=== PATIENT | male | born 1950 | race Caucasian/White ===

== ENCOUNTER 2017-06-03 10:27 | Emergency (ER) | payer BC ==
[~2017-06-03] VITALS: Ht 188 cm; Wt 101.4 kg
[~2017-06-03 10:27] MED LIST changes: -ATOR-22 PO; -HYDR-5688 PO; -SUMA6KIT IM; -TOPI25TA99 PO; -VERA240T20 PO
[2017-06-03 10:36] VITALS: TEMP 36.5; Ht 188 cm; Wt 101.4 kg
[2017-06-03] MEDS ORDERED: VERA240T20 PO (10:44)
[2017-06-03] MEDS ORDERED: TOPI25TA99 PO (10:44)
[2017-06-03] MEDS ORDERED: ATOR-22 PO (10:44)
[2017-06-03] MEDS ORDERED: SUMA6KIT IM (10:44)
--- NOTE | 2017-06-03 11:01 | DIAGNOSTIC IMAGING REPORT ---
R ANKLE MIN 3 VIEWS ROUTINE CLINICAL HISTORY: Right ankle pain. COMPARISON: Right heel radiographs December 17, 2011. FINDINGS: There is an acute nondisplaced distal right fibular fracture which extends from the level of the tibiotalar joint 3 cm proximally. No acute distal right tibial fracture is present. There is moderate lateral ankle soft tissue swelling. No ankle mortise widening is identified. Talar dome is intact. IMPRESSION: 1. Acute nondisplaced distal right fibular fracture. 2. Moderate lateral ankle soft tissue swelling. 3. No ankle mortise widening. Electronically signed by: Clinton Muñoz M.D. 06/03/2017 11:00 AM Dictated Date/Time: 06/03/2017 10:58 AM
--- NOTE | 2017-06-03 11:02 | DIAGNOSTIC IMAGING REPORT ---
R HEEL MIN 2 VIEWS CLINICAL HISTORY: Right heel pain. COMPARISON: Right heel radiographs December 17, 2011. FINDINGS: No right calcaneal fracture is identified. An acute nondisplaced distal right fibular fracture is better depicted on the right ankle radiographs. IMPRESSION: 1. No acute right calcaneal fracture. 2. Acute nondisplaced distal right fibular fracture which is better depicted on the right ankle radiographs. Electronically signed by: Clinton Muñoz M.D. 06/03/2017 11:01 AM Dictated Date/Time: 06/03/2017 11:00 AM
--- NOTE | 2017-06-03 11:07 | EMERGENCY ROOM VISIT NOTE ---
ED Visit Note First contact with patient: 10:46 I have seen and examined this patient with Jefferson Martinez and agree with the treatment plan. Current/Historical Medications Scheduled Atorvastatin (Lipitor), 20 MG PO DAILY Levothyroxine Sodium (Levothyroxine Sodium), 150 MG PO DAILY Pantoprazole (Protonix), 40 MG PO BID Topiramate (Topamax ), 25 MG PO BID Verapamil Sust Rel (Calan Sr Ext Rel), 240 MG PO DAILY Miscellaneous Medications Sumatriptan Succinate (Imitrex Statdose), 6 MG IM Allergies Coded Allergies: No Known Allergies (Verified , UNKNOWN, 06/03/17) Vital Signs Date Time Temp Pulse Resp B/P (MAP) Pulse Ox O2 Delivery O2 Flow Rate FiO2 06/03/17 10:36 36.5 75 18 148/75 97 Room Air Departure Information Referrals Warren Marx DO (PCP) Patient Instructions My [facility]
[2017-06-03] MEDS ORDERED: HYDR-5688 PO (11:24)
[2017-06-03 11:46] VITALS: BP 141/71; PULSE 72; O2SAT 97
--- NOTE | 2017-06-03 13:40 | EMERGENCY ROOM VISIT NOTE ---
ED Visit Note First contact with patient: 10:46 CHIEF COMPLAINT: Ankle pain HISTORY OF PRESENT ILLNESS: This 66-year-old male patient presents to the emergency department after sustaining an injury to the right ankle and foot with a twisting, inversion motion that occurred last night. The patient was taking the garbage outside when he slipped at the bottom of the driveway, and suffered the injury. The patient complains of pain along the outside of the ankle. The patient is without pain of the foot. The patient rates the pain as dull and 5/10. The patient is not able to bear weight on the foot. Constant pain, worse with movement, weight bearing, and the dependent position. No knee pain, the patient is able to move their toes. No numbness or weakness of the foot, no laceration. The patient has not had a previous fracture to this ankle. The patient has taken nothing for the pain. The patient denies any other injury. REVIEW OF SYSTEMS: A 6 system review of systems was completed with positives and pertinent negatives listed in the HPI. ALLERGIES: No known allergies MEDICATIONS: See EMR PMH: See EMR SOCIAL HISTORY: Lives locally with family PHYSICAL EXAM: Vital Signs: Reviewed Nurse's notes, vital signs stable. GENERAL : White male, no acute distress, but appears in pain, well-developed, well- nourished. MENTAL STATUS: Alert, oriented to person place and time, and cooperative. MUSCULOSKELETAL: The right ankle is swollen and tender over the lateral malleolus, but the skin is intact and there is no ligamentous instability. There is no fifth metatarsal tenderness. There is no tenderness over the rest of the foot. There is no calf or tibia/fibular tenderness. There is no visual deformity. The foot and toes are warm and well-perfused. Dorsalis pedis pulse 2+. Sensation to pain and light touch is intact. Capillary refill less than 2 seconds. R ANKLE MIN 3 VIEWS ROUTINE CLINICAL HISTORY: Right ankle pain. COMPARISON: Right heel radiographs December 17, 2011. FINDINGS: There is an acute nondisplaced distal right fibular fracture which extends from the level of the tibiotalar joint 3 cm proximally. No acute distal right tibial fracture is present. There is moderate lateral ankle soft tissue swelling. No ankle mortise widening is identified. Talar dome is intact. IMPRESSION: 1. Acute nondisplaced distal right fibular fracture. 2. Moderate lateral ankle soft tissue swelling. 3. No ankle mortise widening. EMERGENCY DEPARTMENT COURSE: Physical exam and history were performed. Nursing notes and EMR were reviewed. The patient appears to have fallen last evening of injury to his right ankle. X-ray was obtained and does confirm a distal right fibular fracture. The patient is tender in this distribution, which correlates with symptoms. I discussed the case with my attending physician, Dr. Pierre, who also independently evaluated the patient. The patient was placed in an Ortho-Glass splint with neurovascular status remaining intact. He will use [id number] analgesics and prefers to follow with [facility] for further care. Evidently the patient has crutches and a walker at home that he is comfortable using. He was recommended to utilize these to prevent further falls. He was given additional discharge instructions as below. Current/Historical Medications Scheduled Atorvastatin (Lipitor), 20 MG PO DAILY Levothyroxine Sodium (Levothyroxine Sodium), 150 MG PO DAILY Pantoprazole (Protonix), 40 MG PO BID Topiramate (Topamax ), 25 MG PO BID Verapamil Sust Rel (Calan Sr Ext Rel), 240 MG PO DAILY Scheduled PRN Hydrocodone/Acetaminophen 5MG/325MG ([place] 5MG/325MG), 1-2 TABLET PO Q6 PRN for Pain Miscellaneous Medications Sumatriptan Succinate (Imitrex Statdose), 6 MG IM Allergies Coded Allergies: No Known Allergies (Verified , UNKNOWN, 06/03/17) Vital Signs Date Time Temp Pulse Resp B/P (MAP) Pulse Ox O2 Delivery O2 Flow Rate FiO2 06/03/17 11:46 72 18 141/71 97 06/03/17 10:36 36.5 75 18 148/75 97 Room Air Departure Information Impression Primary Impression: Fracture of distal end of right fibula Dispostion Home / Self-Care Condition GOOD Prescriptions Hydrocodone/Acetaminophen 5MG/325MG ([place] 5MG/325MG) Tab 1-2 TABLET PO Q6 Y for Pain, #15 TAB For Initial Treatment Prov: Jefferson Martinez PA-C 06/03/17 Referrals Warren Marx DO (PCP) Dre Cabello M.D. Forms HOME CARE DOCUMENTATION FORM, IMPORTANT VISIT INFORMATION Patient Instructions My [facility], ED Compartment Syndrome At Risk For, ED RICE Additional Instructions You were seen and evaluated today on an emergency basis only. This is not a substitute for, or an effort to provide, complete comprehensive medical care. It is not possible to recognize and treat all injuries or illnesses in a single emergency department visit. For this reason it is recommended that you followup with [facility] , Dr. Cabello's office, by telephone today to arrange a follow-up appointment in the next week. For baseline pain relief you may alternate ibuprofen and acetaminophen every 4 hours for pain control. Take 600 mg ibuprofen (Advil) and then 4 hours later take 1000 mg acetaminophen (Tylenol). Do not take more than 3000 mg acetaminophen in a single day. [place] (hydrocodone/acetaminophen) 5/325 mg every 6 hours as needed for worsening breakthrough pain. Do not drink or drive on [place]. This medication will likely make you tired. Do not take [place] and Tylenol at the same time as both contain acetaminophen. [place] may cause constipation. You may wish to take an [id number] stool softener like Colace if this occurs. Do not get your splint wet. You may use your crutches or walker from home to help with walking. Take every precaution to prevent falling. You are welcome to return to the emergency department anytime with new, worsening, or concerning symptoms.
== END 2017-06-03 11:44 | disposition home or self-care (01) ==
LOC: C.EDB 10:28 → C.EDD 11:44
DX: S82.891A Other fracture of right lower leg, initial encounter for closed fracture (principal); W01.0XXA Fall on same level from slipping, tripping and stumbling without subsequent striking against object, initial encounter; Y92.019 Unspecified place in single-family (private) house as the place of occurrence of the external cause; Z79.899 Other long term (current) drug therapy

== ENCOUNTER → 2017-06-03 | Outpatient (CLI) | payer BC ==
[~2017-06-03] MED LIST: ATOR-22 PO; B-CO1CAP3 PO; COEN75CA PO; HYDR-5688 PO; LEVO150T9 PO; OMEG10007 PO; PANT40TA PO; SUCR1TAB29 PO; SUMA100T16 PO; SUMA6KIT IM; TOPI25TA99 PO; VERA240T20 PO
--- NOTE | 2017-06-03 14:39 | DIAGNOSTIC IMAGING REPORT ---
R ANKLE 2 VIEWS HISTORY: 66 years-old Male RIGHT ANKLE PAIN acute right ankle pain with distal fibular fracture. [place] mortise view only. COMPARISON: Right ankle radiographs of same day at 10:47 AM TECHNIQUE: Single gravity mortise view of the right ankle FINDINGS: Acute fracture of the distal fibula is again seen extending to the level of the tibiotalar joint, approximately 3.0 cm proximally. There is only minimal lateral displacement of the proximal one cortex width. No widening of the distal tibiofibular syndesmosis identified. Talar dome is smooth without osteochondral defect. Moderate soft tissue swelling. IMPRESSION: 1. Acute distal fibular fracture as above with only minimal displacement. 2. Ankle mortise appears intact. 3. Moderate soft tissue swelling. The above report was generated using voice recognition software. It may contain grammatical, syntax or spelling errors. Electronically signed by: Nii Dyer M.D. 06/03/2017 2:38 PM Dictated Date/Time: 06/03/2017 2:36 PM
== END | disposition home or self-care (01) ==
LOC: C.RDSM 12:04
PROVIDERS: ATTEND Physician Assistant
DX: S82.61XA Displaced fracture of lateral malleolus of right fibula, initial encounter for closed fracture (principal); X58.XXXA Exposure to other specified factors, initial encounter

== ENCOUNTER → 2017-06-09 | Outpatient (CLI) | payer BC ==
[~2017-06-09] MED LIST changes: +ATOR-22 PO; -B-CO1CAP3 PO; -COEN75CA PO; +HYDR-5688 PO; -OMEG10007 PO; -SUCR1TAB29 PO; -SUMA100T16 PO; +SUMA6KIT IM; +TOPI25TA99 PO; +VERA240T20 PO
--- NOTE | 2017-06-09 10:29 | DIAGNOSTIC IMAGING REPORT ---
R ANKLE MIN 3 VIEWS CLINICAL HISTORY: Right ankle pain and COMPARISON: June 03, 2017 DISCUSSION: There is no change in the position of the oblique fracture of the distal fibula which demonstrates 2 mm of maximal distraction. The ankle mortise appears intact. IMPRESSION: No change in alignment of the distal fibular fracture. Electronically signed by: Jim Lira M.D. 06/09/2017 10:28 AM Dictated Date/Time: 06/09/2017 10:26 AM
== END | disposition home or self-care (01) ==
LOC: C.RDSM 10:15
PROVIDERS: ATTEND Physician Assistant
DX: S82.64XA Nondisplaced fracture of lateral malleolus of right fibula, initial encounter for closed fracture (principal); X58.XXXA Exposure to other specified factors, initial encounter

== ENCOUNTER → 2017-07-15 | Outpatient (CLI) | payer BC | END | disposition home or self-care (01) | LOC: C.RDSM 09:17 | PROVIDERS: ATTEND Physical Medicine & Rehabilitation Sports Medicine | DX: S82.64XD Nondisplaced fracture of lateral malleolus of right fibula, subsequent encounter for closed fracture with routine healing (principal); X58.XXXD Exposure to other specified factors, subsequent encounter ==

== ENCOUNTER → 2017-12-28 | Outpatient (CLI) | payer BC ==
[~2017-12-28] MED LIST changes: -HYDR-5688 PO
--- NOTE | 2017-12-28 11:44 | DIAGNOSTIC IMAGING REPORT ---
MRI OF THE LEFT SHOULDER WITHOUT CONTRAST CLINICAL HISTORY: Left shoulder pain. Strain. COMPARISON STUDY: No previous studies for comparison. TECHNIQUE: Utilizing a 1.5 Meredith magnet and dedicated coil, multiplanar, multi echo imaging of the left shoulder was performed without intravenous or intra-articular contrast. FINDINGS: Alignment of the left shoulder is anatomic. There is moderate osteoarthritis of the left acromioclavicular joint and mild osteoarthritis of the left glenohumeral joint. There is increased T2 signal within the posterior superior labrum consistent with a labral tear. The proximal long head of the biceps tendon is intact. There is no full-thickness rotator cuff tear. There is no tendon retraction or muscular atrophy of the rotator cuff musculature. There is tendinopathy with partial thickness bursal surface tears of distal supraspinatus. There is trace fluid within the subacromial/subdeltoid bursa. IMPRESSION: 1. Superior labral anterior posterior tear. 2. Tendinopathy with partial-thickness bursal surface and interstitial tears within distal supraspinatus. No full-thickness cuff tear. No tendon retraction or muscular atrophy. 3. Moderate osteoarthritis of the left acromioclavicular joint and mild osteoarthritis of the left glenohumeral joint. Electronically signed by: Clinton Muñoz M.D. 12/28/2017 11:43 AM Dictated Date/Time: 12/28/2017 11:37 AM
== END | disposition home or self-care (01) ==
LOC: C.MRI 10:12
PROVIDERS: ATTEND Family Medicine
DX: S46.012A Strain of muscle(s) and tendon(s) of the rotator cuff of left shoulder, initial encounter (principal); S43.432A Superior glenoid labrum lesion of left shoulder, initial encounter; M75.82 Other shoulder lesions, left shoulder; M19.012 Primary osteoarthritis, left shoulder; X58.XXXA Exposure to other specified factors, initial encounter

== ENCOUNTER 2024-07-24 20:30 | Inpatient (IN) ==
[2024-07-24] MEDS: NITROGLYCERIN 2% OINTMENT 30GM TUBE EXT STA (20:54)
[2024-07-24 21:08] LABS: Basophils # (auto) 0.05 K/uL (0.00-0.20); Basophils % (auto) 0.6 %; Eosinophils # (auto) 0.29 K/uL (0.00-0.50); Eosinophils % (auto) 3.5 %; Hematocrit (blood only) 40.1 % (42.0-52.0); Hemoglobin 13.2 g/dl (14.0-18.0); Immature Granulocytes # (auto) 0.02 K/uL (0.01-0.20); Immature Granulocytes % (auto) 0.2 %; Lymphocytes # (auto) 1.25 K/uL (1.20-3.40); Lymphocytes % (auto) 15.2 %; Mean Corpuscular Hemoglobin 31.4 pg (25.0-34.0); Mean Corpuscular Hgb Conc 32.9 g/dL (32.0-36.0); Mean Corpuscular Volume 95.5 fL (80.0-100.0); Mean Platelet Volume 9.8 fL (9.4-12.4); Monocytes # (auto) 0.64 K/uL (0.11-0.59); Monocytes % (auto) 7.8 %; Neutrophils % (auto) 72.7 %; Platelet Count 185 K/uL (130-400); RDW Coefficient of Variation 13.2 % (11.5-14.5); RDW Standard Deviation 45.9 fL (36.4-46.3); White Blood Count 8.25 K/ul (4.8-10.8)
--- NOTE | 2024-07-24 21:14 | Emergency Department Note ---
Impression & Plan Left-sided chest pain, Arm pain, left ED Provider Note NAME: DINORA NASCIMENTO Jr AGE: 73 SEX: Male INFORMANT: Patient ED PROVIDER(S): Marcos Welsh MD CHIEF COMPLAINT: Chest pain PLAN: Disposition: Admitted Outpatient prescription management: none Referral: None MEDICAL DECISION MAKING: Patient presented with chest pain that was relieved by nitroglycerin. Currently he is doing well with minimal discomfort. First ECG did not reveal any ST elevation. Nitropaste was applied. Patient did receive aspirin prehospital. Patient was reassessed and noted some increased discomfort after the Nitropaste but it was only a 2 out of 10. Patient was given a sublingual nitroglycerin. A second ECG was performed and did not reveal any significant change from the first. No ST elevation or ST depression. Patient was monitored. He did have improvement of his symptoms and pain resolved. 30 ECG performed and again revealed no significant change from the first 2 ECGs. Patient had an elevated cardiac troponin. Remainder of labs were unremarkable. Repeat cardiac troponin was performed. Consultation was made with Dr. Arana of the [facility] service. Patient was evaluated in the ER for further management. She will manage the patient's medications and further treatment at this point. Care/management discussed with: barber or beauty shop manager Level of care consideration(s): After review of the information above and other included data, I feel the patient requires escalation of care to admission Triage Nursing notes: reviewed and agree them. Vital Signs: reviewed and remarkable for no significant abnormalities Additional History obtained from: none Chronic Medical/Social Conditions affecting care: High blood pressure Prior/ Outside/ External records reviewed: none Differential Diagnosis: Cardiac ischemia, aortic dissection, pulmonary embolism, pneumothorax, pneumonia, pericarditis, myocarditis, esophageal rupture, GERD, cholecystitis, pancreatitis, musculoskeletal, as well as other pathologies. Diagnostics, independently interpreted by me: ECG: Twelve-lead ECG reveals sinus rhythm with sinus arrhythmia at 81 bpm. Poor R wave progression. No ST elevation. Cardiac Monitoring: Cardiac monitoring ordered by me: The patient was placed on continuous cardiac monitoring and observed. It revealed a normal sinus rhythm at 78 beats per minute without ectopy or evidence of dysrhythmia. Medical decision rules: Patient is moderate risk by HEART SCORE. Imaging studies: Chest x-ray. Findings: A chest x-ray was performed and revealed no pneumothorax, effusion, infiltrate, pulmonary edema, free air under the diaphragm, or wide mediastinum. Impression: No acute disease. HPI: 73 year old Male arrives for evaluation of left-sided chest pain. This started today and is and has been intermittent. Patient notes it has been in the left-sided chest. It did radiate to the left arm and down towards the left hand. Patient notes this is nonexertional. Symptoms escalated this evening and the patient contacted EMS. He was given nitro and aspirin and brought to the emergency department for further management. He did note that the nitro significantly improved his pain. He notes almost complete resolution of any discomfort at this point in time.. The patient also notes the following associated symptoms, none. Current pain is rated as less than 1/10. Patient notes that he was having some epigastric/substernal chest discomfort about 3 years ago and did have a workup performed at that time. He was told he had increased acid. This episode with the left-sided pain into the left arm is different. Pt denies LOC, headache, fevers, chills, diaphoresis, visual changes, neck pain, breathing difficulties, nausea, vomiting, abdominal pain, back pain, melena, hematochezia, urinary symptoms, numbness, weakness, lymphadenopathy, rash, or other complaints.. PAST MEDICAL HISTORY: See Below, GERD PAST SURGICAL HISTORY: See Below, SOCIAL HISTORY: See Below, non-smoker HOME MEDICATIONS: See Below ALLERGIES: See Below VITALS: See Below PHYSICAL EXAMINATION: GENERAL: Awake, alert, well-appearing, in no distress HENT: Normocephalic, atraumatic. Oropharynx unremarkable. EYES: Normal conjunctiva. Sclera non-icteric. NECK: Inspection normal. Non-tender. Supple. No nuchal rigidity. FROM. No masses. RESPIRATORY: Clear to auscultation. No wheezes. No rales. Normal respiratory effort. CARDIAC: Normal rate. Normal rhythm. No murmurs. No rubs. Extremities warm and well perfused. Pulses equal. No JVD. GI: Soft, non-distended. No tenderness to palpation. No rebound or guarding. No masses. RECTAL: Deferred. MUSCULOSKELETAL: Atraumatic. Chest examination reveals no tenderness. The back is symmetrical on inspection without obvious abnormality. There is no CVA tenderness to palpation. No joint edema. LOWER EXTREMITIES: Calves are equal size bilaterally and non-tender. No edema. No discoloration. NEURO: Normal sensorium. No sensory or motor deficits noted. SKIN: No rash or jaundice noted. PROCEDURES: none CRITICAL CARE: none OBSERVATION NOTE: none Past Med/Surg History Problem List (Updated 07/24/24 @ 21:14 by Marcos Welsh MD) Arm pain, left (Acute) Left-sided chest pain (Acute) Colon cancer screening Aortic root dilatation Right ventricular dilation Adhesive capsulitis of right shoulder Adhesive capsulitis of left shoulder Encounter for pre-operative examination Chest pain Abnormal EKG Migraine (Chronic) sporatic occurrances Medical History Aortic root dilatation monitored yearly; f/u dr. weiss, [facility] cardio Polyneuropathy Migraine sporatic occurrances GERD (gastroesophageal reflux disease) Hypothyroidism Hyperlipidemia Sleep apnea uses cpap Surgical History History of surgery Manipulation under anesthesia of the left shoulder History of colonoscopy History of repair of ACL right knee Hx of cervical spine surgery limited ROM side to side History of arthroscopy x1,left shoulder x1 right shoulder Family History Other No family history of adverse response to anesthesia Social History Smoking Status: Never smoker Second Hand Exposure: Yes (hx growing up); Do You Dip or Chew Tobacco: No; Hx Alcohol Use: Yes Alcohol type: hard liquor Hx Substance Use: No Preferred Language: Armenian Communication Ability: Effective Territory Business Manager Required: No Beliefs That Will Affect Care: None Current Living Situation: Spouse Feels Safe at Home: Yes Assistive Devices: Glasses and Hearing Aid - Bilateral Allergies Allergies Allergy/AdvReac Type Severity Reaction Status Date / Time doxycycline AdvReac Severe Gastrointestinal Verified 07/24/24 23:49 Upset Home Meds Home Medications Medication Instructions Recorded Confirmed atorvastatin 20 mg tablet 20 mg PO QAM 05/18/18 07/24/24 pantoprazole 40 mg tablet,delayed 40 mg PO BID 05/18/18 07/24/24 release levothyroxine 150 mcg tablet 150 mcg PO Q2D 09/12/20 07/24/24 levothyroxine 175 mcg tablet 175 mcg PO Q2D 09/12/20 07/24/24 docusate sodium 100 mg capsule 100 mg PO HS 10/08/23 07/24/24 (Stool Softener) Previous Rx's Medication Instructions Recorded verapamil 240 mg tablet,extended 240 mg PO QPM 30 days #30 tabs 10/05/23 release sumatriptan succinate 6 mg/0.5 mL 6 mg (0.5 mL) subcut UD PRN 12/11/23 subcutaneous pen injector migraines #1 mL topiramate 100 mg tablet 100 mg PO .COMPLEX #90 tabs 03/14/24 Results & Data (ED) Vital Signs Vital Signs - 24 hr 07/24/24 20:35 07/24/24 20:36 07/24/24 20:44 Temperature 36.8 C Temperature Source Oral Pulse Rate 77 78 Pulse Rate [Apical] Respiratory Rate 18 Respiratory Effort / Characteristics Non-Labored Spontaneous Respiratory Depth Normal Respiratory Pattern Regular Blood Pressure 139/85 Blood Pressure [Right Arm] Blood Pressure Mean 103 Blood Pressure Mean [Right Arm] Blood Pressure Position Semi-fowlers Blood Pressure Position [Right Arm] Pulse Oximetry 96 Oxygen Delivery Method Room Air Room Air Sepsis Recent Fever Within 48 Hours No Sepsis New/Unexplained Change in Mental Status No Sepsis Action Taken by Nursing No Action Required 07/24/24 21:51 07/24/24 23:00 07/25/24 00:00 Temperature Temperature Source Pulse Rate Pulse Rate [Apical] 69 53 L Respiratory Rate 18 18 Respiratory Effort / Characteristics Respiratory Depth Respiratory Pattern Blood Pressure Blood Pressure [Right Arm] 140/100 125/91 105/70 Blood Pressure Mean Blood Pressure Mean [Right Arm] 113 102 81 Blood Pressure Position Blood Pressure Position [Right Arm] Semi-fowlers Semi-fowlers Pulse Oximetry 93 95 Oxygen Delivery Method Room Air Sepsis Recent Fever Within 48 Hours Sepsis New/Unexplained Change in Mental Status Sepsis Action Taken by Nursing Laboratory Data 07/24/24 20:40 07/24/24 20:40 Lab Results 07/24/24 07/24/24 Range/Units 20:40 22:15 WBC 8.25 (4.8-10.8) K/ul RBC 4.20 L (4.70-6.10) M/uL Hgb 13.2 L (14.0-18.0) g/dl Hct 40.1 L (42.0-52.0) % MCV 95.5 (80.0-100.0) fL MCH 31.4 (25.0-34.0) pg MCHC 32.9 (32.0-36.0) g/dL RDW Std Deviation 45.9 (36.4-46.3) fL RDW Coeff of Kaye 13.2 (11.5-14.5) % Plt Count 185 (130-400) K/uL MPV 9.8 (9.4-12.4) fL Immature Gran % (Auto) 0.2 % Neut % (Auto) 72.7 % Lymph % (Auto) 15.2 % [place] % (Auto) 7.8 % Eos % (Auto) 3.5 % Baso % (Auto) 0.6 % Neut # (Auto) 6.00 (1.40-6.50) K/uL Lymph # (Auto) 1.25 (1.20-3.40) K/uL [place] # (Auto) 0.64 H (0.11-0.59) K/uL Eos # (Auto) 0.29 (0.00-0.50) K/uL Baso # (Auto) 0.05 (0.00-0.20) K/uL Immature Gran # (Auto) 0.02 (0.01-0.20) K/uL Sodium 140 (136-145) mmol/L Potassium 3.7 (3.5-5.1) mmol/L Chloride 110 H (98-107) mmol/L Carbon Dioxide 25 (21-32) mmol/L Anion Gap 5 (3-11) BUN 20 (6-23) mg/dl Creatinine 1.39 (0.6-1.4) mg/dl Est Cr Clr Drug Dosing 59.8 ml/min eGFR 53.53 BUN/Creatinine Ratio 14.4 (10-20) Glucose 135 H (70-99(Fasting)) mg/dl Calcium 9.3 (8.6-10.3) mg/dl Total Bilirubin 0.3 (0.2-1.0) mg/dl AST 20 (13-39) U/L ALT 31 (7-52) U/L Alkaline Phosphatase 62 (34-104) U/L Troponin I High Sens 65.9 H* 134.7 H* D (0-20) pg/ml Total Protein 6.4 (6.0-8.3) gm/dl Albumin 4.1 (3.4-5.0) gm/dl Globulin 2.3 L (2.5-4.0) gm/dl Albumin/Globulin Ratio 1.8 (0.9-2) Lipase 24 (11-82) U/L Administered Medications Nitroglycerin (Nitroglycerin Sl 0.4 Mg/Tab Tab) 0.4 mg SL Q5M PRN PRN Reason: Chest Pain Stop: 08/23/24 21:42 Last Admin: 07/24/24 21:51 Dose: 0.4 mg Documented By: LIA Discontinued Medications Nitroglycerin (Nitroglycerin 2% Ointment 30gm Tube) 0.5 inch EXT NOW STA Stop: 07/24/24 20:46 Last Admin: 07/24/24 20:54 Dose: 0.5 inch Documented By: LIA Discharge Plan Visit Data Chief Complaint: Cardiac Assessment Stated Complaint: CHEST PAIN, INTO LEFT ARM ED Provider: Marcos Welsh Discharge Problem: Left-sided chest pain, Arm pain, left Patient Disposition: Admitted As Inpatient Discharge Instructions Interventions: ED Discharge Assessment Last Done: 07/25/24 00:05 Forms Stand Alone Forms: [employer] Prescriptions Prescriptions: No Action verapamil 240 mg tablet extended release 240 mg PO QPM 30 Days Qty: 30 11RF topiramate 100 mg tablet 100 mg PO .COMPLEX Qty: 90 5RF Rx Instructions: 100 mg orally IN THE AM AND 200MG IN THE PM; sumatriptan succinate 6 mg/0.5 mL pen injector 6 mg subcut UD PRN (Reason: migraines) Qty: 1 11RF Rx Instructions: 6 mg subcutaneously DIRECTED PRN. atorvastatin 20 mg Tablet 20 mg PO QAM pantoprazole 40 mg Tablet,Delayed Release (Dr/Ec) 40 mg PO BID levothyroxine 175 mcg Tablet 175 mcg PO Q2D levothyroxine 150 mcg Tablet 150 mcg PO Q2D docusate sodium [Stool Softener] 100 mg Capsule 100 mg PO HS Referrals Referrals: Warren Marx [Primary Care Provider] -
[2024-07-24 21:25] LABS: Albumin Globulin Ratio 1.8 (0.9-2); Albumin Level 4.1 gm/dl (3.4-5.0); BUN Creatinine Ratio 14.4 (10-20); Bilirubin,Total 0.3 mg/dl (0.2-1.0); Calcium 9.3 mg/dl (8.6-10.3); Creatinine Clr Calc Pharmacy 59.8 ml/min; Globulin 2.3 gm/dl (2.5-4.0); Potassium 3.7 mmol/L (3.5-5.1); Total Protein 6.4 gm/dl (6.0-8.3)
[2024-07-24 21:35] LABS: Troponin I High Sensitivity 65.9 pg/ml (0-20)
[2024-07-24] MEDS: NITROGLYCERIN SL 0.4 MG/TAB TAB SL PRN (21:51)
--- NOTE | 2024-07-24 22:49 | History & Physical Report ---
Date of Service July 24, 2024 Assessment & Plan (1) Chest pain: Plan: -Patient with chest pain at rest, improved with nitroglycerin. -EKG showed no ST elevation or depression. Will continue monitor on telemetry. -Chest x-ray unremarkable. -CBC and CMP unremarkable. -Initial troponin of 65 which increased to 134 at time of admission. Will continue troponin every 6 hours until peak. -Echo from 11/2022 showed an EF of 60-65%. Will repeat echo at this time. -Aspirin given on arrival. -Will start on heparin with bolus. -Cardiology consulted. Will keep n.p.o. in case of intervention in the AM. -CBC, CMP, lipase, and magnesium in the AM. (2) Aortic root dilatation: Plan: -Patient with a mildly dilatated ascending aorta initially seen by cardiology on 09/2021. -Follows with Dr. Weiss. Last seen on . (3) Migraine: Plan: -Patient takes verapamil and topiramate for migraines. -Will hold at this time as patient is n.p.o. pending cardiac consult. (4) Hyperlipidemia: Plan: -Patient on atorvastatin. Holding while n.p.o. at this time. (5) Hypothyroidism: Plan: -On levothyroxine. Holding while n.p.o. at this time. (6) GERD (gastroesophageal reflux disease): Plan: -On PPI, holding while NPO. (7) Sleep apnea: Plan: -CPAP at night. Plan Fluids: none Nutrition: NPO Code status: Full code DVT ppx: Heparin Consults: Cardiology Dispo: PCU/telemetry History of Present Illness Chief Complaint: Chest pain rule out Primary Care Provider: Warren Marx Patient is a 73-year-old male with past medical history of migraines, GERD, hypothyroidism, hyperlipidemia, and aortic root dilatation who presents to the emergency room with chest pain. Patient started having chest pain this morning after tenriism. Chest pain comes and goes. Around 5 PM it started to get worse when he was sitting there. States that it feels like a knife in his chest. Around 6 PM started to also have left arm pain as well. Denies any shortness of breath. Denies any exertional shortness of breath. Denies any sweating, nausea, vomiting, or abdominal pain. Patient received nitroglycerin on the way to the ED which improved pain. Allergies Allergy/AdvReac Type Severity Reaction Status Date / Time doxycycline AdvReac Severe Gastrointestinal Verified 07/24/24 23:49 Upset Home Medications Medication Instructions Recorded Confirmed Type atorvastatin 20 mg tablet 20 mg PO QAM 05/18/18 07/24/24 History pantoprazole 40 mg tablet,delayed 40 mg PO BID 05/18/18 07/24/24 History release levothyroxine 150 mcg tablet 150 mcg PO Q2D 09/12/20 07/24/24 History levothyroxine 175 mcg tablet 175 mcg PO Q2D 09/12/20 07/24/24 History verapamil 240 mg tablet,extended 240 mg PO QPM 30 days #30 tabs 10/05/23 07/24/24 Rx release docusate sodium 100 mg capsule 100 mg PO HS 10/08/23 07/24/24 History (Stool Softener) sumatriptan succinate 6 mg/0.5 mL 6 mg (0.5 mL) subcut UD PRN 12/11/23 07/24/24 Rx subcutaneous pen injector migraines #1 mL topiramate 100 mg tablet 100 mg PO .COMPLEX #90 tabs 03/14/24 07/24/24 Rx Past Med/Surg History Problem List (Updated 07/25/24 @ 02:11 by Christian Valdovinos DO) Sleep apnea uses cpap Arm pain, left (Acute) Left-sided chest pain (Acute) Colon cancer screening Aortic root dilatation Right ventricular dilation Adhesive capsulitis of right shoulder Adhesive capsulitis of left shoulder Encounter for pre-operative examination Chest pain Abnormal EKG Migraine (Chronic) sporatic occurrances Medical History Aortic root dilatation monitored yearly; f/u dr. weiss, [facility] cardio Polyneuropathy Migraine sporatic occurrances GERD (gastroesophageal reflux disease) Hypothyroidism Hyperlipidemia Sleep apnea uses cpap Surgical History History of surgery Manipulation under anesthesia of the left shoulder History of colonoscopy History of repair of ACL right knee Hx of cervical spine surgery limited ROM side to side History of arthroscopy x1,left shoulder x1 right shoulder Family History Other No family history of adverse response to anesthesia Social History Smoking Status: Never smoker Second Hand Exposure: Yes (hx growing up); Do You Dip or Chew Tobacco: No; Hx Alcohol Use: Yes Alcohol type: hard liquor Hx Substance Use: No Preferred Language: Spanish Communication Ability: Effective Conduit Installer Required: No Beliefs That Will Affect Care: None Current Living Situation: Spouse Other Information That Helps Us Care for You: No Feels Safe at Home: Yes Safety Concerns: Feels Safe At This Time Assistive Devices: Glasses and Hearing Aid - Bilateral Review of Systems Review of Systems: All systems reviewed & are unremarkable except as noted in Subjective Physical Exam Physical Exam: Constitutional: well-appearing, no acute distress HEENT: NCAT, no conjunctival injection CV: regular rhythm, no murmur appreciated, extremities well-perfused, no LE edema Resp: CTABL, no wheezes/rales/rhonchi appreciated, no increased work of breathing GI: soft, nondistended, nontender, BS normoactive MSK: no gross deformities appreciated Skin: warm, dry, no rash appreciated Neuro: alert, oriented, no focal neurologic deficit appreciated Results & Data Results & Data Vital Signs (Past 12 Hours) Vital Signs Temp Pulse Resp BP BP Pulse Ox O2 Del Method 07/24/24 21:51 140/100 07/24/24 20:44 Room Air 07/24/24 20:36 36.8 C 78 18 139/85 96 Room Air 07/24/24 20:35 77 Laboratory Results Laboratory Results WBC 9.18 K/ul (4.8-10.8) 07/25/24 03:35 RBC 4.03 M/uL (4.70-6.10) L 07/25/24 03:35 Hgb 12.8 g/dl (14.0-18.0) L 07/25/24 03:35 Hct 38.0 % (42.0-52.0) L 07/25/24 03:35 MCV 94.3 fL (80.0-100.0) 07/25/24 03:35 MCH 31.8 pg (25.0-34.0) 07/25/24 03:35 MCHC 33.7 g/dL (32.0-36.0) 07/25/24 03:35 RDW Std Deviation 45.4 fL (36.4-46.3) 07/25/24 03:35 RDW Coeff of Kaye 13.2 % (11.5-14.5) 07/25/24 03:35 Plt Count 186 K/uL (130-400) 07/25/24 03:35 MPV 9.9 fL (9.4-12.4) 07/25/24 03:35 Immature Gran % (Auto) 0.4 % 07/25/24 03:35 Neut % (Auto) 74.5 % 07/25/24 03:35 Lymph % (Auto) 13.9 % 07/25/24 03:35 Martin % (Auto) 7.5 % 07/25/24 03:35 Eos % (Auto) 3.2 % 07/25/24 03:35 Baso % (Auto) 0.5 % 07/25/24 03:35 Neut # (Auto) 6.83 K/uL (1.40-6.50) H 07/25/24 03:35 Lymph # (Auto) 1.28 K/uL (1.20-3.40) 07/25/24 03:35 Martin # (Auto) 0.69 K/uL (0.11-0.59) H 07/25/24 03:35 Eos # (Auto) 0.29 K/uL (0.00-0.50) 07/25/24 03:35 Baso # (Auto) 0.05 K/uL (0.00-0.20) 07/25/24 03:35 Immature Gran # (Auto) 0.04 K/uL (0.01-0.20) 07/25/24 03:35 Sodium 140 mmol/L (136-145) 07/25/24 03:35 Potassium 3.7 mmol/L (3.5-5.1) 07/25/24 03:35 Chloride 112 mmol/L (98-107) H 07/25/24 03:35 Carbon Dioxide 20 mmol/L (21-32) L 07/25/24 03:35 Anion Gap 8 (3-11) 07/25/24 03:35 BUN 19 mg/dl (6-23) 07/25/24 03:35 Creatinine 1.22 mg/dl (0.6-1.4) 07/25/24 03:35 Est Cr Clr Drug Dosing 67.9 ml/min 07/25/24 03:35 eGFR 62.60 07/25/24 03:35 BUN/Creatinine Ratio 15.6 (10-20) 07/25/24 03:35 Glucose 131 mg/dl (70-99(Fasting)) H 07/25/24 03:35 Calcium 9.0 mg/dl (8.6-10.3) 07/25/24 03:35 Magnesium 1.9 mg/dl (1.7-2.4) 07/25/24 03:35 Total Bilirubin 0.5 mg/dl (0.2-1.0) 07/25/24 03:35 AST 21 U/L (13-39) 07/25/24 03:35 ALT 31 U/L (7-52) 07/25/24 03:35 Alkaline Phosphatase 55 U/L (34-104) 07/25/24 03:35 Troponin I High Sens 943.1 pg/ml (0-20) H* D 07/25/24 03:35 Total Protein 6.0 gm/dl (6.0-8.3) 07/25/24 03:35 Albumin 3.6 gm/dl (3.4-5.0) 07/25/24 03:35 Globulin 2.4 gm/dl (2.5-4.0) L 07/25/24 03:35 Albumin/Globulin Ratio 1.5 (0.9-2) 07/25/24 03:35 Triglycerides 48 mg/dl (0-150) 07/25/24 03:35 Cholesterol 154 mg/dl (0-200) 07/25/24 03:35 LDL Cholesterol, Calc 98 mg/dl 07/25/24 03:35 VLDL Cholesterol, Calc 10 mg/dl (0-30) 07/25/24 03:35 HDL Cholesterol 46 mg/dl 07/25/24 03:35 Cholesterol/HDL Ratio 3.3 (0-5) 07/25/24 03:35 Lipase 24 U/L (11-82) 07/24/24 20:40 Impressions Chest X-Ray 07/24/24 20:44 Exam(s): XR CXR 1 VIEW EXAM: XR Chest, 1 View CLINICAL HISTORY: Reason for exam: Chest pain, nonspecific. TECHNIQUE: Frontal views of the chest. COMPARISON: No relevant prior studies available. FINDINGS: Lungs: No consolidation. Pleural space: No pleural effusion is seen. No pneumothorax. Heart: Heart is normal in size.. Mediastinum: There is uncoiling of thoracic aorta. Bones/joints: There are postoperative changes involving the spine.. IMPRESSION: No acute pulmonary disease. Electronically signed by: Omero Davis MD 07/25/24 00:35 AM Supervising Physician Co-Signing Physician Notes Patient seen and examined, chart reviewed, case discussed with Dr. Valdovinos and I agree with the assessment and plan as above. Patient is a 73yo male with history of HLP presenting with chest pain occurring throughout the day - relieved with Nitro. Increasing troponin 65.9 --> 134.7 --> 943.1 EKG with no ischemic changes Patient resting comfortably, NAD +S1/S2, regular, no m/r/g Lungs CTA Abd soft, NT/ND Labs and images reviewed Assessment/Plan - concern for cardiac chest pain, increasing troponins. No STEMI noted on EKG. Patient chest pain free at present -Heparin gtt initiated -Trend troponin to peak -Check 2D echo -Cardiology consultation appreciated Resident Activity Tracking Resident Involvement: Resident Care Provided Care Provided: Adult Hospital Medicine
--- NOTE | 2024-07-25 00:36 | XRay Report ---
Exam(s): XR CXR 1 VIEW EXAM: XR Chest, 1 View CLINICAL HISTORY: Reason for exam: Chest pain, nonspecific. TECHNIQUE: Frontal views of the chest. COMPARISON: No relevant prior studies available. FINDINGS: Lungs: No consolidation. Pleural space: No pleural effusion is seen. No pneumothorax. Heart: Heart is normal in size.. Mediastinum: There is uncoiling of thoracic aorta. Bones/joints: There are postoperative changes involving the spine.. IMPRESSION: No acute pulmonary disease. Electronically signed by: Omero Davis MD 07/25/24 00:35 AM
[2024-07-25] MEDS ORDERED: NITROGLYCERIN SL 0.4 MG/TAB TAB SL PRN ×2 (00:42→13:21)
[2024-07-25] MEDS: Heparin IV Adult Wt-Based Standard w/ INITIAL Bolus Protocol IV STA (02:01)
[2024-07-25] MEDS: HEPARIN SOD (PORCINE) 1000 UNIT/ML IV ONE (02:32)
[2024-07-25] MEDS: HEPARIN SODIUM/DEXTROSE 25,000 UNITS/500 ML BAG IV SCH (02:32)
[2024-07-25] MEDS: ACETAMINOPHEN 1,000 MG/100 ML VIAL IV STA (03:09)
[2024-07-25 03:50] LABS: Basophils # (auto) 0.05 K/uL (0.00-0.20); Basophils % (auto) 0.5 %; Eosinophils # (auto) 0.29 K/uL (0.00-0.50); Eosinophils % (auto) 3.2 %; Hemoglobin 12.8 g/dl (14.0-18.0); Immature Granulocytes # (auto) 0.04 K/uL (0.01-0.20); Immature Granulocytes % (auto) 0.4 %; Lymphocytes # (auto) 1.28 K/uL (1.20-3.40); Lymphocytes % (auto) 13.9 %; Mean Corpuscular Hemoglobin 31.8 pg (25.0-34.0); Mean Corpuscular Hgb Conc 33.7 g/dL (32.0-36.0); Mean Corpuscular Volume 94.3 fL (80.0-100.0); Mean Platelet Volume 9.9 fL (9.4-12.4); Monocytes # (auto) 0.69 K/uL (0.11-0.59); Monocytes % (auto) 7.5 %; Neutrophils # (auto) 6.83 K/uL (1.40-6.50); Neutrophils % (auto) 74.5 %; Platelet Count 186 K/uL (130-400); RDW Coefficient of Variation 13.2 % (11.5-14.5); RDW Standard Deviation 45.4 fL (36.4-46.3); Red Blood Count 4.03 M/uL (4.70-6.10); White Blood Count 9.18 K/ul (4.8-10.8)
[2024-07-25 04:06] LABS: Albumin Globulin Ratio 1.5 (0.9-2); Albumin Level 3.6 gm/dl (3.4-5.0); BUN Creatinine Ratio 15.6 (10-20); Bilirubin,Total 0.5 mg/dl (0.2-1.0); Chol HDL Ratio 3.3 (0-5); Creatinine Clr Calc Pharmacy 67.9 ml/min; Globulin 2.4 gm/dl (2.5-4.0); Magnesium 1.9 mg/dl (1.7-2.4); Potassium 3.7 mmol/L (3.5-5.1)
--- NOTE | 2024-07-25 04:37 | Billing Data ---
Date of Service July 24, 2024 Coding Level of Care Code 45479 INT INP/OBS CARE
[2024-07-25] MEDS: SODIUM CHLORIDE 0.9% 500 ML IV ONE (06:08)
[2024-07-25] MEDS: PANTOprazole 40 MG TAB PO SCH (09:03)
[2024-07-25] MEDS: ATORVASTATIN 20 MG TAB PO SCH (09:03)
[2024-07-25 09:11] LABS: ANTI-Xa, UFH(UnfractionatedHep 1.35 IU/ml (0.3-0.7)
--- NOTE | 2024-07-25 09:56 | XCELERA ---
[id number]
--- NOTE | 2024-07-25 10:19 | Electrocardiogram Report ---
Test Reason : Blood Pressure : */* mmHG Vent. Rate : 69 BPM Atrial Rate : 69 BPM P-R Int : 160 ms QRS Dur : 86 ms QT Int : 388 ms P-R-T Axes : 53 13 35 degrees QTcB Int : 415 ms Sinus rhythm with Premature atrial complexes Normal ECG When compared with ECG of 24-Jul-2024 20:36, Premature atrial complexes are now Present Confirmed by Pedro Spears ([id number]) on 07/25/2024 10:19:11 AM Referred By: REFERRED SELF Confirmed By: Pedro Spears
--- NOTE | 2024-07-25 10:19 | Electrocardiogram Report ---
Test Reason : Blood Pressure : */* mmHG Vent. Rate : 81 BPM Atrial Rate : 81 BPM P-R Int : 172 ms QRS Dur : 96 ms QT Int : 390 ms P-R-T Axes : 38 19 29 degrees QTcB Int : 453 ms Normal sinus rhythm with sinus arrhythmia Normal ECG When compared with ECG of 21-Sep-2020 09:14, No significant change was found Confirmed by Pedro Spears ([id number]) on 07/25/2024 10:18:55 AM Referred By: REFERRED SELF Confirmed By: Pedro Spears
--- NOTE | 2024-07-25 10:20 | Electrocardiogram Report ---
Test Reason : Blood Pressure : */* mmHG Vent. Rate : 71 BPM Atrial Rate : 71 BPM P-R Int : 162 ms QRS Dur : 88 ms QT Int : 390 ms P-R-T Axes : 17 22 41 degrees QTcB Int : 423 ms Sinus rhythm with frequent Premature atrial complexes Borderline ECG When compared with ECG of 24-Jul-2024 21:48, No significant change Confirmed by Pedro Spears ([id number]) on 07/25/2024 10:19:44 AM Referred By: REFERRED SELF Confirmed By: Pedro Spears
--- NOTE | 2024-07-25 12:38 | Pre Anesthesia Assessment ---
Date of Service July 25, 2024 Pre Sedation Assessment Vital Signs Temp Pulse Pulse Pulse Resp BP BP 07/25/24 11:34 36.6 C 75 18 145/86 H 07/25/24 11:06 36.5 C 78 18 118/79 07/25/24 08:23 36.4 C L 64 16 122/84 07/25/24 02:45 36.5 C 79 17 95/52 L 07/25/24 01:06 47 L 07/25/24 00:47 07/25/24 00:47 36.7 C 65 18 149/68 H 07/25/24 00:42 36.7 C 65 18 149/68 H 07/25/24 00:42 07/25/24 00:00 53 L 18 105/70 07/24/24 23:00 69 18 125/91 07/24/24 21:51 140/100 07/24/24 20:44 07/24/24 20:36 36.8 C 78 18 139/85 07/24/24 20:35 77 Pulse Ox Pulse Ox O2 Del Method O2 Del Method 07/25/24 11:34 97 Room Air 07/25/24 11:06 93 Room Air 07/25/24 08:23 97 Room Air 07/25/24 02:45 94 Room Air 07/25/24 01:06 07/25/24 00:47 Room Air 07/25/24 00:47 97 Room Air 07/25/24 00:42 97 Room Air 07/25/24 00:42 97 Room Air 07/25/24 00:00 95 07/24/24 23:00 93 Room Air 07/24/24 21:51 07/24/24 20:44 Room Air 07/24/24 20:36 96 Room Air 07/24/24 20:35 Cardiovascular RRR, no murmur, no edema Respiratory normal respiratory effort, lungs clear to auscultation Pre-Sedation Airway Assessment Smoking Status: Never smoker Hx Sleep Apnea: Yes Short, Thick Neck: No Thyromental Distance: > or= 3.5 Finger Breadths Oral Cavity: + WNL Mallampati Class: III ASA: ASA3 NPO Status Date of Last Intake of Fluids: 07/25/24 Time of Last Intake of Fluids: 08:00 Date of Last Intake of Solid Food: 07/24/24 Time of Last Intake of Solid Foods: 20:00 Notes The planned sedation has been discussed with the patient. Informed Consent was obtained. I have identified the patient, determined the appropriateness of sedation and have assessed the patient immediately prior to the procedure. All medicine(s) and interventions are by my order.
--- NOTE | 2024-07-25 12:46 | Hospitalist Progress Note ---
Date of Service July 25, 2024 Assessment & Plan (1) Chest pain: Plan: Probable non-ST elevation CT. Currently pain-free. He is on a heparin drip. He has been seen by cardiology. Left heart catheterization is pending. Telemetry. (2) Aortic root dilatation: Plan: Currently being followed by Dr. Cohen. Last seen on . (3) Hyperlipidemia: Plan: Stable. Continue statin therapy (4) Hypothyroidism: Plan: Stable. Continue current thyroid replacement therapy (5) GERD (gastroesophageal reflux disease): Plan: Stable. Continue PPI therapy Plan To be determined by results of left heart catheterization Admission and Anticipated Discharge Date Admission Date: July 24, 2024 Subjective Probable NSTEMI. Currently pain-free on a heparin drip. Troponin has increased to 943 but there are no acute EKG changes. Fortunately the cardiac echo reveals no regional wall motion abnormalities with normal left ventricular ejection fraction. He has mild underlying left ventricular hypertrophy. Thyroid free T3 and free T4 levels are normal. He remains on verapamil, levothyroxine, and Protonix which she takes at home. He has been seen by cardiology. Left heart catheterization is pending Review of Systems 2 Review of Systems: Constitutionalno fever or chills ENTno blurred vision, no double vision, no epistaxis, no sore throat Respiratoryno cough, no wheezing, no shortness of breath Cardiacno palpitations, no syncope. Currently chest pain-free [place] nausea, vomiting, diarrhea, melena, hematochezia GUno urinary retention, no urinary incontinence, no dysuria, no hematuria Musculoskeletalno joint pain, no muscle tenderness Skinno bruising, no rashes, no pruritus Neurono isolated weakness, no paresthesia, no weakness Psychno depression, no anxiety Physical Exam 2 Physical Exam: General-alert and oriented x3, no fever, no chills HEENT-head atraumatic and normocephalic, pupils equal and reactive to light, extraocular muscles intact Neck-no lymphadenopathy or thyromegaly, trachea midline Chest-clear to auscultation. No rales, wheezing or rhonchi Cardiac-regular rate and rhythm, normal S1 and S2 Abdomen-normal bowel sounds, no hepatosplenomegaly Extremities-no cyanosis, clubbing, or edema Neuro-cranial nerves II through XII intact, motor and sensory function within normal limits, strength symmetrical, no focal deficits Psych-normal affect, normal mood Results & Data Results & Data Vital Signs (Past 12 Hours) Vital Signs Temp Pulse Pulse Pulse Resp BP Pulse Ox 07/25/24 11:34 36.6 C 75 18 145/86 H 97 07/25/24 11:06 36.5 C 78 18 118/79 93 07/25/24 08:23 36.4 C L 64 16 122/84 97 07/25/24 02:45 36.5 C 79 17 95/52 L 94 07/25/24 01:06 47 L 07/25/24 00:47 07/25/24 00:47 36.7 C 65 18 149/68 H 97 O2 Del Method 07/25/24 11:34 Room Air 07/25/24 11:06 Room Air 07/25/24 08:23 Room Air 07/25/24 02:45 Room Air 07/25/24 01:06 07/25/24 00:47 Room Air 07/25/24 00:47 Room Air Laboratory Results 07/25/24 03:35 07/25/24 03:35 PG Care Time/CCT Total # of Minutes Spent Total Time Spent with Patient: Total time spent is greater than 50% in coordination of care (as documented) at patient's floor/unit and/or counseling patient: Coding Level of Care Code 77320 SUB INP/OBS CARE 3/50MIN Diagnoses Chest pain R07.9 Aortic root dilatation I77.810 Hyperlipidemia E78.5 Hypothyroidism E03.9 GERD (gastroesophageal reflux disease) K21.9
[2024-07-25] MEDS: niCARdipine 2,000 MCG/20 ML SYR ONE (12:52)
[2024-07-25] MEDS: NITROGLYCERIN/D5W 100MCG/ML 20ML SYR ONE (12:52)
[2024-07-25] MEDS: HEPARIN (PORCINE) 1000 UNIT/ML 10 ML (CATH LAB USE ONLY) ONE (13:15)
[2024-07-25] MEDS: fentaNYL citrate PF 100 MCG/2 ML VIAL ONE (13:15)
[2024-07-25] MEDS: MIDAZOLAM HCL 1 MG/ML 2ML VIAL ONE (13:15)
[2024-07-25] MEDS: OPTIRAY 350 ONE (13:16)
--- NOTE | 2024-07-25 13:27 | Post Anesthesia Assessment ---
Date of Service July 25, 2024 Post Sedation Assessment Vital Signs Temp Pulse Pulse Pulse Resp BP BP 07/25/24 13:15 36.6 C 67 18 127/80 07/25/24 13:00 69 07/25/24 11:34 36.6 C 75 18 145/86 H 07/25/24 11:06 36.5 C 78 18 118/79 07/25/24 08:23 36.4 C L 64 16 122/84 07/25/24 02:45 36.5 C 79 17 95/52 L 07/25/24 01:06 47 L 07/25/24 00:47 07/25/24 00:47 36.7 C 65 18 149/68 H 07/25/24 00:42 36.7 C 65 18 149/68 H 07/25/24 00:42 07/25/24 00:00 53 L 18 105/70 07/24/24 23:00 69 18 125/91 07/24/24 21:51 140/100 07/24/24 20:44 07/24/24 20:36 36.8 C 78 18 139/85 07/24/24 20:35 77 Pulse Ox Pulse Ox O2 Del Method O2 Del Method 07/25/24 13:15 97 Room Air 07/25/24 13:00 07/25/24 11:34 97 Room Air 07/25/24 11:06 93 Room Air 07/25/24 08:23 97 Room Air 07/25/24 02:45 94 Room Air 07/25/24 01:06 07/25/24 00:47 Room Air 07/25/24 00:47 97 Room Air 07/25/24 00:42 97 Room Air 07/25/24 00:42 97 Room Air 07/25/24 00:00 95 07/24/24 23:00 93 Room Air 07/24/24 21:51 07/24/24 20:44 Room Air 07/24/24 20:36 96 Room Air 07/24/24 20:35 Recovery Score Activity: Moves 4 extremities Respiration: Deep Breath/Cough Circulation: +/-20% PreAnes Value Consciousness: Fully Awake Oxygen Saturation: > 92% On Room Air Post Anesthesia Score: 10 Discharge Sedation Level of Care: Fast Track Phase II Post Sedation Plan On clinical assessment, the patient appears to have tolerated the sedation without complications. Patient is recovering as anticipated. Patient will continue to be monitored by nursing and may be discharged when sedation discharge criteria are met per below protocol. Upon Completions of procedure up to 15 minutes continue every 5 minute vital signs and the P.A.R. score; then discharge to a Phase I or Fast Track to Phase II per the following guidelines: * Discharge Patient to appropriate Phase II area if PAR is 8 or greater or return to pre- procedure baseline. The post - procedure orders will be as di rected. * If PAR score is less than 8 or not return to pre-procedure baseline then patient will follow Phase I monitoring till PAR is reached for Phase II. The Phase I may be done in procedure room or may call to secure a Phase I area. * If naloxone or flumazenil are used for reversal, hold in Phase I for continued monitoring from when last reversal dose was given for a minimum of 60 minutes or longer pending the nurse and/or physician discretion of patient condition before discharge to Phase II. Please call the Sedation Physician to re-evaluate and complete post-note for discharge to Phase II area. Do NOT discharge from procedure sedation or Phase 1 until post- sedation evaluation note is complete by procedure /sedation MD Sedation Discharge Instructions to be given to the patient at discharge to home. [facility] [place] Codes (Charges) Indication for Procedure Indication for procedure: NSTEMI Sedation/Anesthesia Procedure 1: Sedation/Anesthesia: 27697 Mod Sedation by the same physician;Init15 Min Federico vallecillo Age 5 & Up (start 1253, end 1310)
--- NOTE | 2024-07-25 14:13 | Cardiology Consultation ---
Date of Consultation July 25, 2024 Assessment & Plan (1) Chest pain: (2) Acute dissection of coronary artery: (3) NSTEMI (non-ST elevated myocardial infarction): Plan 73-year-old man with modest vascular risk factors presents with classic chest discomfort and rising troponin but no ECG findings, cardiac catheterization shows ectatic vessels with apparent spontaneous dissection right coronary artery. He is on heparin and has received aspirin, was already on statin. Due to weather related lack of flight options for any coronary artery intervention backup, patient is to be transferred via ground unit to [facility] for definitive care. History of Present Illness Reason for Consultation: Chest pain rule out Requesting Physician: Alex Rosenberg MD Attending Physician: Alex Rosenberg MD History of Present Illness 73-year-old man with vascular risk factors (impaired fasting glucose, dyslipidemia, age, gender) but no cardiac history who noted onset of precordial chest discomfort yesterday which gradually increased to become quite severe and ultimately radiated down his left arm, initial troponin 65, subsequent values up to 2509 without yet peaking, serial ECGs unremarkable. He denies any associated diaphoresis or dyspnea, no palpitations, lightheadedness, presyncope, or syncope. His symptoms increased to the point he called for an ambulance, he noted some improvement after sublingual and topical nitrates. Ultimately, his symptoms resolved in the ER and did not recur overnight. Echocardiogram showed normal LVEF and wall motion, mild LVH with mild to moderate by dilated RV with normal systolic function, mild pulmonary regurgitation, normal RVSP. After discussion of risk/benefits, given classic symptoms and rising troponin, through shared decision making cardiac catheterization was pursued. Dr. Huynh reports ectatic arteries with apparent spontaneous dissection right coronary artery without total occlusion, transferred to [place] for definitive care is planned. Allergies Allergy/AdvReac Type Severity Reaction Status Date / Time doxycycline AdvReac Severe Gastrointestinal Verified 07/25/24 11:37 Upset Home Medications Medication Instructions Recorded Confirmed Type atorvastatin 20 mg tablet 20 mg PO QAM 05/18/18 07/24/24 History pantoprazole 40 mg tablet,delayed 40 mg PO BID 05/18/18 07/24/24 History release levothyroxine 150 mcg tablet 150 mcg PO Q2D 09/12/20 07/24/24 History levothyroxine 175 mcg tablet 175 mcg PO Q2D 09/12/20 07/24/24 History verapamil 240 mg tablet,extended 240 mg PO QPM 30 days #30 tabs 10/05/23 07/24/24 Rx release docusate sodium 100 mg capsule 100 mg PO HS 10/08/23 07/24/24 History (Stool Softener) sumatriptan succinate 6 mg/0.5 mL 6 mg (0.5 mL) subcut UD PRN 12/11/23 07/24/24 Rx subcutaneous pen injector migraines #1 mL topiramate 100 mg tablet 100 mg PO .COMPLEX #90 tabs 03/14/24 07/24/24 Rx Patient History Medical History Aortic root dilatation monitored yearly; f/u dr. weiss, [facility] Polyneuropathy GERD (gastroesophageal reflux disease) Hypothyroidism Hyperlipidemia Surgical History History of surgery Manipulation under anesthesia of the left shoulder History of colonoscopy History of repair of ACL right knee Hx of cervical spine surgery limited ROM side to side History of arthroscopy x1,left shoulder x1 right shoulder Family History Other No family history of adverse response to anesthesia Social History Smoking Status: Never smoker Second Hand Exposure: Yes (hx growing up); Do You Dip or Chew Tobacco: No; Hx Alcohol Use: Yes Alcohol type: hard liquor Hx Substance Use: No Preferred Language: Korean Communication Ability: Effective Rn Imcu Required: No Beliefs That Will Affect Care: None Current Living Situation: Spouse Other Information That Helps Us Care for You: No Feels Safe at Home: Yes Safety Concerns: Feels Safe At This Time Assistive Devices: Cane, CPAP, Crutches and Walker Physical Exam Physical Exam: Adult white male no distress. Afebrile. Mildly hypertensive. Pulse 80 bpm and regular. Respiration 17 but unlabored. Skin: no ecchymoses or generalized lesions. HEENT: unremarkable. Neck: JVP at the clavicle at 90 degrees, no carotid bruits. Lungs: clear. Cardiac: regular rhythm, normal S1-2, no murmur. Abdomen: benign. Extremities: no edema, pulses intact. Neurologic: normal affect and conversation, nonfocal. Results & Data Laboratory Results Troponin values 65, 134, 943, 2509. Normal electrolytes, BUN 19, creatinine 1.22. Hemoglobin 12.8 with normal white count platelet count. Diagnostic Findings Serial ECG showed sinus rhythm with isoelectric ST segments, some tracing had PACs, otherwise unremarkable. Chest x-ray unremarkable. PG Care Time/CCT Total # of Minutes Spent Total Time Spent with Patient: Total time spent is greater than 50% in coordination of care (as documented) at patient's floor/unit and/or counseling patient: Coding Level of Care Code 62713 IN/OBS CONSULT LVL 3,45M Diagnoses Chest pain R07.9 Acute dissection of coronary artery I25.42 NSTEMI (non-ST elevated myocardial infarction) I21.4
[2024-07-25 15:40] LABS: ANTI-Xa, UFH(UnfractionatedHep 1.14 IU/ml (0.3-0.7)
--- NOTE | 2024-07-25 16:44 | Discharge Summary ---
Discharge Summary Date of Service July 25, 2024 Principal Dx & Hospital Course #1 = Principal Diagnosis (1) Chest pain: non-ST elevation UT. Currently chest pain-free. Left heart catheterization completed today, July 25, there is evidence of right coronary artery thrombus and there could be an associated dissection. Cardiology has stated that the heparin drip should continue for now. He needs interventional cardiology but due to weather conditions, helicopter back up is not available and any intervention cannot be accomplished at [facility] at this time. Arrangements are being finalized for transfer to [facility]. Telemetry. (2) Aortic root dilatation: Currently being followed by Dr. Cohen. Last seen on . (3) Hyperlipidemia: Stable. Continue statin therapy (4) Hypothyroidism: Stable. Continue current thyroid replacement therapy (5) GERD (gastroesophageal reflux disease): Stable. Continue PPI therapy Plan Transfer to [facility] for interventional cardiology when arrangements are finalized Admission HPI Per Admitting Provider Patient is a 73-year-old male with past medical history of migraines, GERD, hypothyroidism, hyperlipidemia, and aortic root dilatation who presents to the emergency room with chest pain. Patient started having chest pain this morning after holiness. Chest pain comes and goes. Around 5 PM it started to get worse when he was sitting there. States that it feels like a knife in his chest. Around 6 PM started to also have left arm pain as well. Denies any shortness of breath. Denies any exertional shortness of breath. Denies any sweating, nausea, vomiting, or abdominal pain. Patient received nitroglycerin on the way to the ED which improved pain. Discharge Exam General-alert and oriented x3, no fever, no chills HEENT-head atraumatic and normocephalic, pupils equal and reactive to light, extraocular muscles intact Neck-no lymphadenopathy or thyromegaly, trachea midline Chest-clear to auscultation. No rales, wheezing or rhonchi Cardiac-regular rate and rhythm, normal S1 and S2 Abdomen-normal bowel sounds, no hepatosplenomegaly Extremities-no cyanosis, clubbing, or edema Neuro-cranial nerves II through XII intact, motor and sensory function within normal limits, strength symmetrical, no focal deficits Psych-normal affect, normal mood Discharge Plan Discharge Items Patient Disposition: Transfer Acute Care Hospital Reason For Visit: CHEST PAIN R/O Discharge Diagnosis: NSTEMI Activity: As commented below Activity Comment: Bedrest for now. May have bathroom privileges Non-emergency contact: Primary Care Provider and Safety Admin Assistant Call non-emergency contact if: you have any medication questions and your symptoms worsen Follow-up/Referrals: Warren Marx [Primary Care Provider] - Diet: Regular and Heart Healthy Addtl Attending Provider Instructions: See your primary care provider and shot polisher and inspector as soon as possible after discharge from [facility] Pending Studies at Discharge: No Stand-Alone Forms: [facility] [employer] [place] Skilled Items Patient informed of condition?: Yes DNR: No Discharge Level of Care: Other Communicable Disease: No Discharge Prognosis: Stable Lines: Peripheral IV Urinary Catheter: No Medications and DC Order Prescriptions: New nitroglycerin [Nitrostat] 0.4 mg Tablet, Sublingual 0.4 mg sublingual Q5M PRNQty: 0 0RF Continued verapamil 240 mg tablet extended release 240 mg PO QPM 30 Days Qty: 30 11RF topiramate 100 mg tablet 100 mg PO .COMPLEX Qty: 90 5RF Rx Instructions: 100 mg orally IN THE AM AND 200MG IN THE PM; sumatriptan succinate 6 mg/0.5 mL pen injector 6 mg subcut UD PRN (Reason: migraines) Qty: 1 11RF Rx Instructions: 6 mg subcutaneously DIRECTED PRN. atorvastatin 20 mg Tablet 20 mg PO QAM pantoprazole 40 mg Tablet,Delayed Release (Dr/Ec) 40 mg PO BID levothyroxine 175 mcg Tablet 175 mcg PO Q2D levothyroxine 150 mcg Tablet 150 mcg PO Q2D docusate sodium [Stool Softener] 100 mg Capsule 100 mg PO HS Discharge Orders: Discharge Order (Routine); Ordered 07/25/24 Ordered By: Alex Rosenberg Admission Data Admit Date/Time: 07/24/24 23:15 Attending Provider: Alex Rosenberg Admit Provider: Christian Valdovinos Primary Care Provider: Warren Marx Other Providers: Samson Cox; Pedro Spears; Milton Shah; Jefferson Huynh; Abel Cartagena; Adama Simental Jr; Toni Rosales; Lilian Markham; Sri Eaton; Florencio Cohen; Florencio Pat; Alex Coombs; Reta Madison; Luther Michelle; Yamini Storm; Thor Claudio; Luther Castrejon; Isiah Bey; Spencer Jeffries; Bisi Arana Hospital Stay Data Consultations 07/25/24 00:42 Consult Cardiology Routine 07/25/24 00:43 ED Decision to Admit Stat Procedures Performed Operation Date: 07/25/24 13:00 Actual Procedures p Cineradiography w/Routine Exam - Jefferson Huynh MD, PhD p Cath, Coronaries ONLY (no LV) - Jefferson Huynh MD, PhD Diagnostic Imagining Performed 07/25/24 08:31 CL Cath Imgs for PACS use only Routine Pending Results Patient Have Any Pending Studies at Discharge: No Discharge Instructions Given to Patient (Per Discharging Provider) See your primary care provider and shot polisher and inspector as soon as possible after discharge from [facility] Total Time Total Time Spent Total Time Spent (In Minutes): 50 minutes Coding Level of Care Code 49406 INP/OBS DISCH >30 MIN Diagnoses Chest pain R07.9 Aortic root dilatation I77.810 Hyperlipidemia E78.5 Hypothyroidism E03.9 GERD (gastroesophageal reflux disease) K21.9
--- NOTE | 2024-07-25 16:45 | Cardiac Catheterization ---
[facility] Data: Rn Stars Cardiac Status Clinical evaluation leading to the procedure CAD Presenation: Non STEMI Anginal Classification: CCS IV Heart Failure: No Cardiogenic Shock within 24 Hours: No Cardiac Arrest within 24 Hours: No Imaging Studies Past 6 Months: No Coronary Anatomy Dominant: Right Left Main (% Stenosis): Normal LAD (% Stenosis): Mid (30%) D1 (% Stenosis): Proximal (Less than 40%) D2 (% Stenosis): Normal Circumflex (% Stenosis): Normal OM1 (% Stenosis): Normal L PL1 (% Stenosis): Normal RCA (% Stenosis): Proximal (20 to 30%) and Mid (Severe complex disease with haziness, ectasia, thrombus extending to the bifurcation) R PDA (% Stenosis): Normal R PL1 (% Stenosis): Ostial (Thrombus) Ramus (% Stenosis): Normal Diagnostic Physicians Name: Jefferson Huynh MD, PhD Closure Device Percutaneous Entry Location: Radial Recommendations: Medical Therapy and/or Counseling and PCI without planned CABG PCI Indication: PCI for high risk Non-ESTEVAN Intraprocedure Events Significant Disection: No Perforation: No Cardiac Cath Procedure Full Procedure Date July 25, 2024 Pre-Procedure Diagnosis Pre-Procedure Diagnosis: Non STEMI AUC Score AUC Score: 07 Post-Procedure Diagnosis Post-Procedure Diagnosis: Severe CAD Procedure(s) Performed Procedure(s) Performed: Coronary Angiography Ore Dryer Jefferson Huynh MD, PhD Estimated Blood Loss Estimated Blood Loss: 5cc Medication(s) Medication(s): Fentanyl, Heparin, Lidocaine 1%, Nicardipine, Nitroglycerin and Versed Summary of Findings Brief description: Patient was brought to the cardiac catheterization suite where he was shaved and prepped in a sterile fashion. Sedated using IV Versed and fentanyl. Soft tissues of the right wrist were anesthetized using 2 mL of 1% Xylocaine. The right radial artery was accessed with a modified Seldinger technique and a 6 English radial artery glide sheath was placed. All catheters were advanced and exchanged over a 0.035 J-tip wire. Patient was provided anticoagulation with IV heparin and antispasmodics including nicardipine and nitroglycerin. Left coronary angiography in orthogonal views with a 5 English JL 4 diagnostic cath. Right coronary angiography in orthogonal views using a 5 English JR4 diagnostic catheter. Diagnostic catheters were removed. Radial artery sheath was removed. Hemostasis was obtained using a TR band. Patient was hemodynamically stable and asymptomatic. He was returned to the recovery area. This ended the case. Coronary angiography findings: ICE-vwjuh-dngfvnk vessel trifurcating into LAD, circumflex, and ramus. Mild luminal irregularities. JQZ-bvsqy-ciljmhg and transapical vessel. Proximal to mid segment is very ectatic. There is luminal irregularities in the proximal segment. Mid segment appears to have less than 30% stenosis. Distally the vessel has luminal irregularities. It provides 2 significant diagonal branches. D1 has up to 40% stenosis proximally. QPb-xtang-pldmzjy vessel which is nondominant. Travels in the AV groove and gives a high rising branching OM1. It then continues in the AV groove given an atrial branch before terminating in a medium caliber posterolateral. The circumflex and its branches have no more than mild luminal irregularities. Iihwn-tlyxf-hzpnstg vessel with no occlusive disease. RCA-this is very large caliber and dominant. There is diffuse ectasia. Proximally there is mild less than 20 to 30% stenosis. Mid segment is ectatic and there appears to be thrombus, atherosclerosis, and possible coronary dissection extending all the way to the bifurcation distally. There is significant haziness in the distal vessel although there is no staining. The vessel then bifurcates into the PDA and the posterolateral branch. The PDA appears to have luminal irregularities. Posterolateral branch has ostial lesion which is likely thrombus. The flow beyond the mid RCA is STEPHANE I. Summary: 1. Non-ST elevation RI likely secondary to complex RCA disease. Because of the ectasia and the appearance of the vessel there may be some degree of dissection. 2. I do recommend further evaluation of the RCA with intracoronary imaging. However, we do not have capability of air evacuation today and therefore additional intracoronary imaging and PCI are contraindicated at this facility at this time. 3. I recommend referral to tertiary center for additional evaluation and treatment. This was discussed with the patient and his . They prefer referral to [facility]. In the meantime, patient will remain on heparin drip, statin therapy, aspirin, and he may be loaded with Brilinta or Plavix. Hemodynamics Rest Ao:: 127/76 mmHg Final Ao: 119/82 mmHg LV: Not performed Recommendations Recommendations: Medical Therapy and/or Counseling and PCI without planned CABG Radiation Exposure (mGy) 1203 mGy, fluoroscopy time 4.8 minutes Contrast (mls) 85 mL Anesthesia 1 mg Versed, 25 mcg fentanyl IV. Start 1253, and 1310 Procedural Complication(s) None Disposition Rn Stars Holding/Recovery I attest to the content of the Intraoperative Record and any orders documented therein. Any exceptions are noted below. [facility] Card Cath Procedure Codes Cardiac Catheterization Procedure 1: Cardiovascular Cath Procedures: 80819 Coronaries Moderate Sedation Procedure 1: Sedation/Anesthesia: 22237 Mod Sedation by the same physician;Init15 Min Child Age 5 & Up (Initial 15 minutes, start time 1253, end time 1310) PG Care Time/CCT Total # of Minutes Spent Total Time Spent with Patient: Total time spent is greater than 50% in coordination of care (as documented) at patient's floor/unit and/or counseling patient:
[2024-07-25 17:37] LABS: ANTI-Xa, UFH(UnfractionatedHep 0.29 IU/ml (0.3-0.7)
[2024-07-25] MEDS: VERAPAMIL HCL 240 MG TABCR PO SCH (20:07)
[2024-07-25 20:43] VITALS: TEMP 98.1
[2024-07-25 23:09] VITALS: O2SAT 93
[2024-07-26 01:24] LABS: ANTI-Xa, UFH(UnfractionatedHep 0.38 IU/ml (0.3-0.7)
[2024-07-26 04:34] VITALS: BP 118/79; RESP 17
[2024-07-26] MEDS: LEVOTHYROXINE SODIUM 150 MCG TABLET PO SCH (05:42)
--- NOTE | 2024-07-26 08:28 | Electrocardiogram Report ---
Test Reason : Blood Pressure : */* mmHG Vent. Rate : 87 BPM Atrial Rate : 87 BPM P-R Int : 166 ms QRS Dur : 94 ms QT Int : 380 ms P-R-T Axes : 35 2 -8 degrees QTcB Int : 457 ms Normal sinus rhythm Old Inferior infarct Abnormal ECG When compared with ECG of 24-Jul-2024 22:12, Criteria for Old Inferior infarct is now Present Inverted T waves have replaced nonspecific T wave abnormality in Inferior leads Confirmed by Pedro Spears ([id number]) on 07/26/2024 8:28:24 AM Referred By: REFERRED SELF Confirmed By: Pedro Spears
[2024-07-26 08:38] VITALS: PULSE 91
== END 2024-07-26 08:40 | disposition short-term general hospital (02) | DRG 280 ==
LOC: ED 20:30 → 2S 23:15 → SUATTDRO 23:15 → 2S 07-25 00:05
PROC: CLB.CCO (2024-07-25 13:00)